=== PATIENT | female | born 1955 | race Caucasian/White ===

== ENCOUNTER → 2021-04-16 | Outpatient (CLI) | payer MEDICARE, OTHER ==
[~2021-04-16] MED LIST: CELEBREX100 MG PO; CYMBALTA30 MG PO; FISH OIL 1,0001 EAC2 PO; LOSARTAN-HCTZ1 EACH PO; METHOCARBAMOL750 MG PO; PANTOPRAZOLE SO20 MG PO; PLAVIX75 MG PO; PRADAXA75 MG PO; ZIAC 5-6.25 MG1 EACH PO
== END ==
LOC: MRI 08:56
PROVIDERS: ATTEND Podiatrist Foot & Ankle Surgery
DX: S86.311A Strain of muscle(s) and tendon(s) of peroneal muscle group at lower leg level, right leg, initial encounter (principal)

== ENCOUNTER → 2021-04-22 | Day surgery (SDC) | payer MEDICARE, OTHER ==
[2021-04-20 13:03] LABS: BASOPHILS # (AUTO) 0.1 (0.0-0.1); BASOPHILS % 1.5 % (0.0-1.0); EOSINOPHILS # (AUTO) 0.3 (0.0-0.4); EOSINOPHILS % 5.9 % (0.0-6.0); HEMOGLOBIN 12.2 g/dL (12.0-16.0); LYMPHOCYTES # (AUTO) 1.2 (1.0-3.2); LYMPHOCYTES % 21.2 % (18.0-39.1); MEAN CORPUSCULAR HEMOGLOBIN 30.1 pg (28-32); MEAN CORPUSCULAR HGB CONC 31.3 g/dL (31-35); MEAN CORPUSCULAR VOLUME 96.3 fL (81-99); MONOCYTES # (AUTO) 0.8 (0.2-0.8); MONOCYTES % 13.9 % (4.4-11.3); NEUTROPHILS # (AUTO) 3.1 (2.1-6.9); NEUTROPHILS % 57.1 % (38.7-80.0); PLATELET COUNT 272 x10e3/uL (140-360); RED BLOOD COUNT 4.05 x10e6/uL (3.6-5.1); RED CELL DISTRIBUTION WIDTH 13.5 % (11.7-14.4)
[2021-04-20 13:28] LABS: ANION GAP 12.7 mmol/L (8-16); CALCIUM 8.5 mg/dL (8.4-10.2); CREATININE, SERUM 0.94 mg/dL (0.57-1.11); POTASSIUM 4.7 mmol/L (3.5-5.1)
[~2021-04-22] MED LIST changes: +BUPIVACAINE HCL 0.5% INJ 30 ML VIAL INJ ONE; +CLINDAMYCIN PHOS 900MG/ 50ML 50 ML IV ONE; +DEXAMETHASONE SOD PHOS INJ 4 MG/ML SDV ONE; +FENTANYL CITRATE/PF 100MCG/2 ML INJ ONE
[2021-04-22 10:48] VITALS: BP 157/84
== END | disposition home or self-care (01) ==
LOC: OR 05:31
PROVIDERS: ATTEND Podiatrist Foot & Ankle Surgery
DX: S96.812A Strain of other specified muscles and tendons at ankle and foot level, left foot, initial encounter (principal); G47.33 Obstructive sleep apnea (adult) (pediatric); I10 Essential (primary) hypertension; I25.10 Atherosclerotic heart disease of native coronary artery without angina pectoris; K21.9 Gastro-esophageal reflux disease without esophagitis; X58.XXXA Exposure to other specified factors, initial encounter; Z88.1 Allergy status to other antibiotic agents; Z88.0 Allergy status to penicillin; Z01.810 Encounter for preprocedural cardiovascular examination; Z01.812 Encounter for preprocedural laboratory examination; Z01.818 Encounter for other preprocedural examination; Z20.822 Contact with and (suspected) exposure to COVID-19; Z79.02 Long term (current) use of antithrombotics/antiplatelets; Z95.5 Presence of coronary angioplasty implant and graft
CPT/HCPCS: 27658; 36415; 71046; 80048; 85025; 93005; J3010; U0002; J1100

== ENCOUNTER 2021-06-01 06:13 | Observation (INO) | payer MEDICARE, OTHER ==
[2021-05-29 11:57] LABS: BASOPHILS # (AUTO) 0.1 (0.0-0.1); BASOPHILS % 1.6 % (0.0-1.0); EOSINOPHILS # (AUTO) 0.2 (0.0-0.4); EOSINOPHILS % 4.7 % (0.0-6.0); HEMATOCRIT 38.8 % (34.2-44.1); HEMOGLOBIN 12.3 g/dL (12.0-16.0); LYMPHOCYTES # (AUTO) 1.5 (1.0-3.2); LYMPHOCYTES % 30.6 % (18.0-39.1); MEAN CORPUSCULAR HGB CONC 31.7 g/dL (31-35); MEAN CORPUSCULAR VOLUME 94.6 fL (81-99); MONOCYTES # (AUTO) 0.6 (0.2-0.8); MONOCYTES % 11.3 % (4.4-11.3); NEUTROPHILS # (AUTO) 2.6 (2.1-6.9); NEUTROPHILS % 51.6 % (38.7-80.0); PLATELET COUNT 259 x10e3/uL (140-360); RED CELL DISTRIBUTION WIDTH 13.1 % (11.7-14.4)
[2021-05-29 12:27] LABS: ANION GAP 15.3 mmol/L (8-16); CALCIUM 8.9 mg/dL (8.4-10.2); CREATININE, SERUM 0.82 mg/dL (0.57-1.11); POTASSIUM 4.3 mmol/L (3.5-5.1)
[~2021-06-01] VITALS: Ht 162.6 cm; Wt 82.2 kg
[~2021-06-01 06:13] MED LIST changes: -BUPIVACAINE HCL 0.5% INJ 30 ML VIAL INJ ONE; -CLINDAMYCIN PHOS 900MG/ 50ML 50 ML IV ONE; -DEXAMETHASONE SOD PHOS INJ 4 MG/ML SDV ONE; -FENTANYL CITRATE/PF 100MCG/2 ML INJ ONE
[2021-06-01] MEDS ORDERED: CELECOXIB 200 MG CAP ONE (06:27)
[2021-06-01] MEDS ORDERED: SODIUM CHLORIDE 0.9% 250ML 250 ML ONE (06:28)
[2021-06-01] MEDS ORDERED: Vancomycin IV 1 GM VIAL ONE (06:28)
[2021-06-01] MEDS ORDERED: DEXAMETHASONE SOD PHOS 10 MG/1 ML VIAL ONE (06:28)
[2021-06-01] MEDS ORDERED: GABAPENTIN 300 MG CAP ONE (06:28)
[2021-06-01] MEDS ORDERED: Vancomycin IV 1,000 MG ONE (06:50)
[2021-06-01] MEDS ORDERED: TRANEXAMIC ACID 1,000 MG/10 ML ML ONE (06:50)
[2021-06-01] MEDS ORDERED: SODIUM CHLORIDE 0.9% 500ML 500 ML ONE (06:51)
[2021-06-01] MEDS ORDERED: ROPIVACAINE 246.25 MG, EPINEPHRINE HCL 1:1000 1ML 0.5 MG, CLONIDINE HCL 0.08 MG, KETORO... INJ ONE ×5 (08:00)
[2021-06-01] MEDS ORDERED: DIPHENHYDRAMINE HCL INJ 50 MG/ML VIAL IV PRN (08:15)
[2021-06-01] MEDS ORDERED: SODIUM CHLORIDE 0.9% 1000ML 1,000 ML IV SCH (08:15)
[2021-06-01] MEDS ORDERED: ACETAMINOPHEN 650 MG SUPP PR PRN (08:15)
[2021-06-01] MEDS ORDERED: ONDANSETRON HCL INJ 2MG/ML 2ML 2 MG/ML VIAL IV PRN (08:15)
[2021-06-01] MEDS ORDERED: ZOLPIDEM TARTRATE 5 MG TAB PO PRN (08:15)
[2021-06-01] MEDS ORDERED: DOCUSATE SODIUM 100 MG CAP PO PRN (08:15)
[2021-06-01] MEDS ORDERED: HYDROCODONE/APAP 5MG-325MG TAB PO PRN (08:15)
[2021-06-01] MEDS ORDERED: KETOROLAC TROMETHAMINE 30 MG/ML VIAL IV PRN (08:15)
[2021-06-01] MEDS ORDERED: FENTANYL CITRATE/PF 100MCG/2 ML INJ ONE (08:56)
[2021-06-01] MEDS ORDERED: HYDROMORPHONE 1MG/1ML INJ ONE (09:11)
[2021-06-01 09:45] VITALS: BP 150/73
[2021-06-01] MEDS: HYDROCODONE/APAP 7.5MG-325MG 1 EA TAB PO PRN ×2 (10:04→14:38)
[2021-06-01] MEDS: ASPIRIN 325 MG TAB PO SCH ×2 (10:04→16:40)
[2021-06-01 10:15] VITALS: BP 152/69
[2021-06-01 12:05] VITALS: BP 130/71
[2021-06-01 16:34] VITALS: BP 124/74
[2021-06-01] MEDS ORDERED: DEXTROSE 50% SYRINGE 50 ML IV PRN (16:45)
[2021-06-01] MEDS ORDERED: CELECOXIB 200 MG CAP PO SCH (17:00)
[2021-06-01] MEDS ORDERED: Vancomycin IV 1 GM in SODIUM CHLORIDE 0.9% 250ML 250 ML IV SCH (18:30)
[2021-06-02] MEDS ORDERED: ACETAMINOPHEN 1000 MG/100 ML IV PRN (08:15)
== END 2021-06-01 19:04 | disposition home or self-care (01) ==
LOC: OR 06:13 → PACU V 08:14 → MED/SURG 09:24
PROVIDERS: ADMIT Specialist; ATTEND Specialist
DX: M17.11 Unilateral primary osteoarthritis, right knee (principal); I11.9 Hypertensive heart disease without heart failure; K29.70 Gastritis, unspecified, without bleeding; Z86.718 Personal history of other venous thrombosis and embolism; Z79.01 Long term (current) use of anticoagulants; I25.10 Atherosclerotic heart disease of native coronary artery without angina pectoris; Z01.818 Encounter for other preprocedural examination; Z20.822 Contact with and (suspected) exposure to COVID-19
CPT/HCPCS: 27447; 36415 ×2; 73560; 80048; 82948; 85025; 86850; 86900; 86920; 96361; 97110; 97116; 97161; 97530; C1713; G0378; J0171; J1100; J1170; J1885; J2405; J2795; J3010; J3370 ×2; J7030; J7040; J7050; U0002

== ENCOUNTER → 2021-09-28 | Outpatient (RCR) | payer MEDICARE, OTHER | LOC: PT 09-09 09:00 | PROVIDERS: ATTEND Specialist | DX: M75.121 Complete rotator cuff tear or rupture of right shoulder, not specified as traumatic (principal) ==

== ENCOUNTER 2021-10-23 10:57 | Outpatient (RCR) | payer MEDICARE, OTHER | END 2021-10-29 | LOC: PT 10:57 | PROVIDERS: ATTEND Specialist | DX: M75.121 Complete rotator cuff tear or rupture of right shoulder, not specified as traumatic (principal) | CPT/HCPCS: 97139 ==

== ENCOUNTER → 2021-11-02 | Outpatient (CLI) | payer MEDICARE | LOC: MRI 13:01 | PROVIDERS: ATTEND Specialist | DX: M75.121 Complete rotator cuff tear or rupture of right shoulder, not specified as traumatic (principal) ==

== ENCOUNTER 2021-11-23 11:00 | Outpatient (RCR) | payer MEDICARE, OTHER | END 2021-11-28 | LOC: PT 11:00 | PROVIDERS: ATTEND Specialist | DX: M75.121 Complete rotator cuff tear or rupture of right shoulder, not specified as traumatic (principal) | CPT/HCPCS: 97139 ==

== ENCOUNTER → 2022-05-13 | Outpatient (CLI) | payer MEDICARE, OTHER | LOC: MRI 10:59 | PROVIDERS: ATTEND Psychiatry & Neurology Neurology | DX: R41.89 Other symptoms and signs involving cognitive functions and awareness (principal); Z86.79 Personal history of other diseases of the circulatory system | CPT/HCPCS: 70551 ==